=== PATIENT | female | born 1965 | race Caucasian/White ===

== ENCOUNTER → 2017-03-13 | Outpatient (CLI) | payer BC ==
[2017-03-13 14:04] LABS: BASO % 0.6 % (0.0-1.0); EOS # 0.1 10^3/uL (0.0-0.50); EOS % 1.3 % (0.0-3.0); HEMOGLOBIN 15.1 g/dl (12.0-16.0); IMMATURE GRANULOCYTE % 0.2 % (0-0); LYMPH # 1.9 10^3/uL (1.5-4.5); MEAN CORPUSCULAR HEMOGLOBIN 30.8 pg (27.0-33.0); MEAN CORPUSCULAR HGB CONC 32.8 g/dl (32.0-36.5); MEAN CORPUSCULAR VOLUME 93.9 fl (80.0-96.0); MONO # 0.5 10^3/uL (0.0-0.8); MONO % 9.3 % (0.0-5.0); NEUTROPHILS # 2.7 10^3/uL (1.8-7.7); NEUTROPHILS % 51.6 % (36.0-66.0); PLATELET COUNT, AUTOMATED 279 10^3/uL (150-450); RED CELL DISTRIBUTION WIDTH 12.1 % (11.5-14.5); WHITE BLOOD COUNT 5.3 10^3/uL (4.0-10.0)
[2017-03-13 14:40] LABS: ALBUMIN 3.8 GM/DL (3.2-5.2); ALBUMIN/GLOBULIN RATIO 1.09 (1.00-1.93); ALKALINE PHOSPHATASE 66 U/L (45-117); ALT/SGPT 37 U/L (12-78); ANION GAP 9 MEQ/L (8-16); AST/SGOT 28 U/L (7-37); BILIRUBIN,TOTAL 0.7 MG/DL (0.2-1.0); BLOOD UREA NITROGEN 19 MG/DL (7-18); CALCIUM LEVEL 9.2 MG/DL (8.5-10.1); CARBON DIOXIDE LEVEL 25 MEQ/L (21-32); CHLORIDE LEVEL 104 MEQ/L (98-107); CHOLESTEROL LEVEL 272 MG/DL (<200); CHOLESTEROL RISK RATIO 2.344 (<5); CREATININE FOR GFR 0.69 MG/DL (0.55-1.02); GLOMERULAR FILTRATION RATE > 60.0 (>51); GLUCOSE, FASTING 93 MG/DL (70-105); HDL CHOLESTEROL 116 MG/DL (>40); LDL CHOLESTEROL 131.2 MG/DL (<100); NON-HDL-C 156 MG/DL; SODIUM LEVEL 138 MEQ/L (136-145); T UPTAKE 27 % (30-39); TOTAL PROTEIN 7.3 GM/DL (6.4-8.2); TRIGLYCERIDES LEVEL 124 MG/DL (<150)
[2017-03-13 14:42] LABS: VITAMIN B12 LEVEL 596 PG/ML (247-911)
[2017-03-13 14:44] LABS: FREE T4 0.98 NG/DL (0.76-1.46)
[2017-03-13 14:44] LABS: TOTAL 25(OH) VITAMIN D 32.4 NG/ML (30.0-100.0)
[2017-03-13 15:31] LABS: ESTIMATED AVERAGE GLUCOSE 103 MG/DL (60-110); HEMOGLOBIN A1c 5.2 %
[2017-03-18 14:14] LABS: FREE T4 BY DIALYSIS DIRECT 0.98 ng/dL (.)
== END ==
LOC: M SMT 08:49
DX: G71.11 Myotonic muscular dystrophy (principal); R53.83 Other fatigue
CPT/HCPCS: 84443

== ENCOUNTER 2017-04-02 06:44 | Day surgery (SDC) | payer BC ==
[~2017-04-02 06:44] MED LIST: ACETAMINOPHEN 325 MG TAB PO
[2017-04-02] MEDS ORDERED: CYCLOPENTOLATE 2% OPHTH SOLN 2ML BTL As Ordered (06:56)
[2017-04-02] MEDS ORDERED: PHENYLEPHRINE 2.5% OPHTH SOL 2ML As Ordered (06:56)
[2017-04-02] MEDS ORDERED: OFLOXACIN 0.3 % (OCUFLOX) OPTH SOL 5ML As Ordered (06:56)
[2017-04-02] MEDS ORDERED: TROPICAMIDE 1% OPHTH SOLN 2ML As Ordered (06:57)
[2017-04-02] MEDS ORDERED: fentaNYL 100 MCG/2 ML INJECTION (J3010) As Ordered (06:59)
[2017-04-02] MEDS ORDERED: MIDAZOLAM INJ 2 MG/2 ML VIAL (J2250) As Ordered (06:59)
[2017-04-02] MEDS ORDERED: SLF 3 ML SYR IV ×2 (07:00→14:00)
[2017-04-02] MEDS ORDERED: PHENYLEPHRINE HCL 10 % OPHTH. SOL 5ML OD (07:00)
[2017-04-02] MEDS ORDERED: PROPARACAINE 0.5% OPHTH SOL 15ML OD (07:01)
[2017-04-02] MEDS: LIDOCAINE 3.5 % 1ML OPHTH TOPICAL GEL OU (07:16)
[2017-04-02] MEDS: TROPICAMIDE 1% OPHTH SOLN 2ML OD (07:16)
[2017-04-02] MEDS: OFLOXACIN 0.3 % (OCUFLOX) OPTH SOL 5ML XX (07:16)
[2017-04-02] MEDS: PHENYLEPHRINE 2.5% OPHTH SOL 2ML OD (07:16)
[2017-04-02] MEDS: CYCLOPENTOLATE 2% OPHTH SOLN 2ML BTL OD (07:16)
[2017-04-02] MEDS: LIDOCAINE 1% SDV 5 ML VIAL As Ordered (08:22)
[2017-04-02] MEDS: POVIDONE-IODINE 5% OPHTH PREP SOL 30ML As Ordered (08:22)
[2017-04-02] MEDS: HEALON DUET (HEALON 10MG/ML 0.55ML & HEALON ENDOCOAT 30MG/ML 0.85ML) As Ordered (08:22)
[2017-04-02] MEDS: MOXIFLOXACIN IN BSS 0.25MG/0.25ML INTRACAMERAL INJ (OR EYE ONLY)(J2280) As Ordered (08:22)
[2017-04-02] MEDS: TRIAMCINOLONE PRES FR 40 MG/ML 1ML(TRIESENCE)(OR EYE ONLY)(J3300 PER 1MG) As Ordered (08:23)
[2017-04-02] MEDS: BSS with VANC/TOB/EPI for EYE CASES IR (08:23)
[2017-04-02] MEDS ORDERED: AcetaZOLAMIDE 500 MG ER CAP As Ordered (08:41)
[2017-04-02] MEDS: AcetaZOLAMIDE 500 MG ER CAP PO (08:46)
[2017-04-02] MEDS ORDERED: KETOROLAC 0.5% OPHTH SOLN OD (09:00)
[2017-04-02] MEDS ORDERED: TRIMETHOBENZAMIDE 300 MG CAP PO (09:00)
== END 2017-04-02 09:15 | disposition home or self-care (01) ==
LOC: M SDC 06:44
DX: H26.9 Unspecified cataract (principal); G71.11 Myotonic muscular dystrophy; R06.83 Snoring; Z91.040 Latex allergy status
CPT/HCPCS: 66984

== ENCOUNTER → 2017-04-04 | Outpatient (CLI) | payer BC | LOC: M RAD 17:55 | DX: D25.9 Leiomyoma of uterus, unspecified (principal); N85.4 Malposition of uterus; N83.202 Unspecified ovarian cyst, left side; Z78.0 Asymptomatic menopausal state ==

== ENCOUNTER → 2017-04-04 | Outpatient (CLI) | payer BC | LOC: M EKG 17:27 | DX: G71.11 Myotonic muscular dystrophy (principal) | CPT/HCPCS: 93005 ==

== ENCOUNTER → 2017-04-11 | Outpatient (CLI) | payer BC ==
[2017-04-11 10:33] LABS: LUTEINIZING HORMONE 7.9 mIU/mL
[2017-04-11 10:43] LABS: FOLLICLE STIMULATING HORMONE 23.6 mIU/mL
== END ==
LOC: M SMT 08:06
DX: N92.6 Irregular menstruation, unspecified (principal)
CPT/HCPCS: 83001

== ENCOUNTER → 2017-12-03 | Outpatient (CLI) | payer BC | LOC: M SLEEP 19:45 | DX: R40.0 Somnolence (principal); R06.83 Snoring | CPT/HCPCS: 95810 ==

== ENCOUNTER → 2018-03-10 | Outpatient (REF) | payer BC ==
[~2018-03-10] MED LIST changes: -ACETAMINOPHEN 325 MG TAB PO; +BCP PO; +CLON0.5T8 PO
== END ==
LOC: M LAB REF 15:43
PROVIDERS: ATTEND Plastic Surgery Surgery of the Hand
DX: D48.1 Neoplasm of uncertain behavior of connective and other soft tissue (principal)

== ENCOUNTER → 2018-05-19 | Outpatient (REF) | payer BC | LOC: M LAB REF 12:30 | PROVIDERS: ATTEND Dermatology | DX: L82.1 Other seborrheic keratosis (principal); D23.62 Other benign neoplasm of skin of left upper limb, including shoulder; D23.5 Other benign neoplasm of skin of trunk ==

== ENCOUNTER → 2018-09-17 | Outpatient (REF) | payer BC | LOC: M SMT 17:23 | PROVIDERS: ATTEND Nurse Practitioner Family | DX: J02.9 Acute pharyngitis, unspecified (principal) ==

== ENCOUNTER → 2018-12-24 | Outpatient (CLI) | payer BC ==
[2018-12-24 11:11] LABS: HEMATOCRIT 45.9 % (36.0-47.0); HEMOGLOBIN 14.6 g/dl (12.0-15.5); MEAN CORPUSCULAR HEMOGLOBIN 31.5 pg (27.0-33.0); MEAN CORPUSCULAR HGB CONC 31.8 g/dl (32.0-36.5); MEAN CORPUSCULAR VOLUME 99.1 fl (80.0-96.0); PLATELET COUNT, AUTOMATED 266 10^3/uL (150-450); RED BLOOD COUNT 4.63 10^6/uL (4.00-5.40)
[2018-12-24 11:28] LABS: CHOLESTEROL LEVEL 258 MG/DL (<200); ESTRADIOL < 19.0 PG/ML; FOLLICLE STIMULATING HORMONE 0.4 mIU/mL; FREE THYROXINE INDEX 3.6 % (1.3-4.8); GLUCOSE, FASTING 83 MG/DL (70-100); HDL CHOLESTEROL 124 MG/DL (>40); LDL CHOLESTEROL 101 MG/DL (<100); LUTEINIZING HORMONE < 0.1 mIU/mL; NON-HDL-C 134 MG/DL; PTH INTACT 51.9 PG/ML (18.5-88.0); T UPTAKE 28 % (30-39); TRIGLYCERIDES LEVEL 165 MG/DL (<150); VITAMIN B12 LEVEL 585 PG/ML (247-911)
[2018-12-24 11:38] LABS: HEMOGLOBIN A1c 4.9 %
[2018-12-26 08:12] LABS: VITAMIN D 1,25 DIHYDROXY 58.3 pg/mL (19.9-79.3)
== END ==
LOC: M SMT 08:28
PROVIDERS: ATTEND Nurse Practitioner Women's Health
DX: G71.11 Myotonic muscular dystrophy (principal)

== ENCOUNTER → 2019-12-16 | Outpatient (CLI) | payer BC ==
[~2019-12-16] MED LIST changes: +CLON0.5T2 PO; -CLON0.5T8 PO
[2019-12-16 11:54] LABS: BASO % 0.6 % (0.0-1.0); EOS % 0.6 % (0.0-3.0); HEMATOCRIT 45.7 % (36.0-47.0); HEMOGLOBIN 14.8 g/dl (12.0-15.5); LYMPH # 1.9 10^3/uL (1.5-5.0); LYMPH % 37.1 % (24.0-44.0); MEAN CORPUSCULAR HEMOGLOBIN 31.8 pg (27.0-33.0); MEAN CORPUSCULAR HGB CONC 32.4 g/dl (32.0-36.5); MEAN CORPUSCULAR VOLUME 98.1 fl (80.0-96.0); MONO # 0.6 10^3/uL (0.0-0.8); MONO % 11.4 % (0.0-5.0); NEUTROPHILS # 2.6 10^3/uL (1.5-8.5); NEUTROPHILS % 50.1 % (36.0-66.0); PLATELET COUNT, AUTOMATED 252 10^3/uL (150-450); RED BLOOD COUNT 4.66 10^6/uL (4.00-5.40); WHITE BLOOD COUNT 5.2 10^3/uL (4.0-10.0)
[2019-12-16 12:15] LABS: CHOLESTEROL RISK RATIO 3.109 (<5); THYROID STIMULATING HORMONE 2.76 uIU/ML (0.358-3.740)
[2019-12-16 12:56] LABS: HEMOGLOBIN A1c 4.9 %
--- NOTE | 2019-12-17 08:17 | ECGEPIP ---
[facility] Test Date: 2019-12-16 Pat Name: PATRICIA WELLS Department: Room: - Gender: Female Electrical Intern: IQRA : 1965 Requested By: Jaleesa Damon Order Number: [id number] Reading MD: Arnold Schmidt Measurements Intervals [place] Rate: 65 P: -2 MA: 133 QRS: 52 QRSD: 90 T: -12 QT: 413 QTc: 429 Interpretive Statements SINUS RHYTHM NONSPECIFIC T-WAVE ABNORMALITY Inferoapical repolarization abnormalities more prominent than 04/04/17 Clinical correlation advised Electronically Signed on 12-17-2019 8:17:00 EDT by Arnold Schmidt
[2019-12-18 16:07] LABS: CERULOPLASMIN 27.3 mg/dL (19.0-39.0)
== END ==
LOC: M LAB 10:52
PROVIDERS: ATTEND Nurse Practitioner
DX: G71.11 Myotonic muscular dystrophy (principal); R94.31 Abnormal electrocardiogram [ECG] [EKG]

== ENCOUNTER → 2019-12-29 | Outpatient (CLI) | payer BC ==
[2019-12-29 11:08] LABS: BLOOD UREA NITROGEN 13 MG/DL (7-18); CALCIUM LEVEL 9.3 MG/DL (8.5-10.1); CARBON DIOXIDE LEVEL 26 MEQ/L (21-32); CHLORIDE LEVEL 108 MEQ/L (98-107); CHOLESTEROL LEVEL 256 MG/DL (<200); CHOLESTEROL RISK RATIO 2.752 (<5); CREATININE FOR GFR 0.66 MG/DL (0.55-1.30); GLOMERULAR FILTRATION RATE > 60.0 (>51); GLUCOSE, FASTING 80 MG/DL (70-100); HDL CHOLESTEROL 93 MG/DL (>40); LDL CHOLESTEROL 140 MG/DL (<100); NON-HDL-C 163 MG/DL; POTASSIUM SERUM 4.3 MEQ/L (3.5-5.1); SODIUM LEVEL 140 MEQ/L (136-145); TOTAL 25(OH) VITAMIN D 58.5 NG/ML (30.0-100.0); TRIGLYCERIDES LEVEL 113 MG/DL (<150)
== END ==
LOC: M LAB 09:18
PROVIDERS: ATTEND Specialist
DX: G71.11 Myotonic muscular dystrophy (principal)

== ENCOUNTER → 2020-02-02 | Outpatient (CLI) | payer BC ==
--- NOTE | 2020-02-07 08:35 | ECHO ---
DATE OF PROCEDURE: 02/02/2020 Age: 54 Gender: Female Height: 64 inches Weight: 120 pounds REFERRING PHYSICIAN: Petr Cole MD INDICATION: Hypercholesterolemia, cardiovascular disorder, unspecified. MEASUREMENTS: 2D Measurements: Aortic root 2.8 cm Left atrium 3.3 cm Intraventricular septum 1.11 cm Posterior wall 0.91 cm Left ventricle diastole 3.9 cm Inferior vena cava 2.15 cm (more than 50% respiratory variation) Doppler Measurements: No aortic stenosis No aortic regurgitation Aortic valve velocity 108 cm/s LVOT velocity 97.0 cm/s LVOT VTI 21.8 cm Trace mitral regurgitation Mitral E velocity 87.9 cm/s Mitral A velocity 49.4 cm/s Mitral deceleration time 134 msec Trace tricuspid regurgitation No pulmonic regurgitation Pulmonary artery acceleration time 176 msec MITRAL ANNULAR TISSUE DOPPLER E prime septal 9.1 cm/s, E prime lateral 12.5 cm/s DESCRIPTION: Rhythm was sinus. Image quality was fair. No pericardial effusion. This was a 2D, M-mode, color flow Doppler, and pulsed wave Doppler examination including mitral annular tissue Doppler. CONCLUSIONS: 1. Normal echocardiogram Doppler. 2. Normal left ventricle internal dimensions and wall thickness. Normal regional left ventricular (LV) wall motion and wall thickening. Normal left ventricular (LV) systolic function. Left ventricular ejection fraction (LVEF) of 65% by visual estimate. Normal left ventricular (LV) diastolic function. MTDD
== END ==
LOC: M CARPUL 09:32
DX: E78.00 Pure hypercholesterolemia, unspecified (principal)

== ENCOUNTER → 2020-02-05 | Outpatient (CLI) | payer SELFPAY | LOC: M LABSMTC 08:56 | PROVIDERS: ATTEND Pediatrics | DX: Z20.828 Contact with and (suspected) exposure to other viral communicable diseases (principal) ==

== ENCOUNTER → 2020-03-27 | Outpatient (CLI) | payer BC ==
--- NOTE | 2020-04-11 17:24 | REPMRS ---
Patient History The patient states she has not had a clinical breast exam in over a year. Patient had first child at age 37. Family history of breast cancer at age 50 or over in maternal aunt, breast cancer at age 80 in maternal grandmother. Taking estrogen for 2 months. Taking progesterone for 2 months. Taking unspecified hormones for 2 months. [facility] Screen Mammo: March 27, 2020 - Exam #: [id number] Bilateral CC and MLO view(s) were taken. Technologist: Gloria Garcia, Technologist Prior study comparison: February 25, 2019, bilateral mammogram, performed at [facility]. February 23, 2018, bilateral mammogram, performed at [facility]. FINDINGS: The breast tissue is extremely dense which could obscure a lesion on mammography. The [place] volumetric breast density category is: D. There is an extremely dense symmetrical pattern of residual fibroglandular tissue. There has been no change in the appearance of the mammogram from the previous studies. There is no interval development of dominant mass, archetectural distortion, or grouped microcalcifications suggestive of malignancy. 3-D tomosynthesis shows no additional findings. Assessment: BI-RADS/ACR category 1 mammogram. Negative Mammogram. Recommendation Breast MRI of both breasts in 6 months. Routine screening mammogram of both breasts in 1 year (for women over age 40). This patient's [facility] Lifetime Breast Cancer RIsk is estimated at 20.2 %. Annual screening Breast MRI scanniing is recommended for patient's whose lifetime risk assessment is over 20%. This mammogram was interpreted with the aid of an FDA-approved computer-aided dectection system. Electronically Signed By: Terrence Chamberlain MD 04/11/20 [id number]
== END ==
LOC: M WHC 13:34
PROVIDERS: ATTEND Obstetrics & Gynecology
DX: Z12.31 Encounter for screening mammogram for malignant neoplasm of breast (principal); Z80.3 Family history of malignant neoplasm of breast

== ENCOUNTER → 2020-04-03 | Outpatient (REF) | payer BC | LOC: M SFHCPLAZ 17:08 | PROVIDERS: ATTEND Physician Assistant | DX: Z91.89 Other specified personal risk factors, not elsewhere classified (principal) ==

== ENCOUNTER → 2020-09-07 | Outpatient (CLI) | payer BC ==
--- NOTE | 2020-09-08 00:58 | REP ---
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 COMPARISON: None. TECHNIQUE: AP, lateral, bilateral oblique views of the right hand. FINDINGS: Osseous structures, joint spaces, and surrounding soft tissues are essentially normal/age-appropriate. No overt osteoarthritic degenerative changes are appreciated. No evidence for acute or healed injury. No subcutaneous emphysema or foreign body. IMPRESSION: Normal age-appropriate right hand radiographs. <Electronically signed by Aguilar Hunt > 09/08/20 0054
== END ==
LOC: M SOG 15:14
PROVIDERS: ATTEND Orthopaedic Surgery Sports Medicine
DX: M18.11 Unilateral primary osteoarthritis of first carpometacarpal joint, right hand (principal)

== ENCOUNTER → 2020-12-08 | Outpatient (REF) | LOC: M EMP 12:49 | PROVIDERS: ATTEND Family Medicine | DX: Z20.822 Contact with and (suspected) exposure to COVID-19 (principal) ==

== ENCOUNTER → 2021-01-27 | Outpatient (CLI) | payer BC ==
[2021-01-27 11:16] LABS: CHOLESTEROL RISK RATIO 2.522 (<5); THYROID STIMULATING HORMONE 1.82 uIU/ML (0.358-3.740)
== END ==
LOC: M LAB 09:38
PROVIDERS: ATTEND Physician Assistant
DX: G71.11 Myotonic muscular dystrophy (principal)

== ENCOUNTER → 2021-09-12 | Outpatient (CLI) | payer BC | LOC: M PAIN 09:00 | PROVIDERS: ATTEND Anesthesiology | DX: M50.10 Cervical disc disorder with radiculopathy, unspecified cervical region (principal); Z88.6 Allergy status to analgesic agent; Z79.899 Other long term (current) drug therapy ==

== ENCOUNTER → 2021-09-23 | Outpatient (CLI) | payer BC | LOC: M LABSMTC 11:19 | PROVIDERS: ATTEND Anesthesiology | DX: Z01.812 Encounter for preprocedural laboratory examination (principal); Z20.822 Contact with and (suspected) exposure to COVID-19 ==

== ENCOUNTER → 2021-09-27 | Outpatient (CLI) | payer BC ==
[~2021-09-27] MED LIST changes: +ISOVUE-M 300 61% 15ML VIAL As Ordered ONE; +LIDOCAINE 1% SDV 30ML VIAL As Ordered ONE; +methylPREDNISolone SUSP 40MG/ML 1ML VIAL (DEPO MEDROL) As Ordered ONE
== END ==
LOC: M PAIN 10:00
PROVIDERS: ATTEND Anesthesiology
DX: M50.10 Cervical disc disorder with radiculopathy, unspecified cervical region (principal); G89.29 Other chronic pain; Z88.6 Allergy status to analgesic agent; Z79.899 Other long term (current) drug therapy
CPT/HCPCS: 62321; J1030; Q9967

== ENCOUNTER → 2022-04-29 | Outpatient (CLI) | payer BC ==
[~2022-04-29] MED LIST changes: -ISOVUE-M 300 61% 15ML VIAL As Ordered ONE; -LIDOCAINE 1% SDV 30ML VIAL As Ordered ONE; -methylPREDNISolone SUSP 40MG/ML 1ML VIAL (DEPO MEDROL) As Ordered ONE
== END ==
LOC: M RAD 14:39
DX: M54.12 Radiculopathy, cervical region (principal)

== ENCOUNTER → 2022-06-19 | Outpatient (CLI) | payer BC | LOC: M WHC 16:53 | PROVIDERS: ATTEND Obstetrics & Gynecology | DX: Z12.31 Encounter for screening mammogram for malignant neoplasm of breast (principal); R92.8 Other abnormal and inconclusive findings on diagnostic imaging of breast ==

== ENCOUNTER → 2022-08-01 | Outpatient (CLI) | payer BC | LOC: M PAIN 09:30 | PROVIDERS: ATTEND Anesthesiology | DX: M79.18 Myalgia, other site (principal); Z88.6 Allergy status to analgesic agent; Z79.899 Other long term (current) drug therapy ==

== ENCOUNTER → 2022-08-23 | Outpatient (CLI) | payer BC ==
[~2022-08-23] MED LIST changes: +BOTOX THERAPEUTIC 100 UNIT VIAL IM ONE
== END ==
LOC: M PAIN 09:15
PROVIDERS: ATTEND Anesthesiology
DX: M79.18 Myalgia, other site (principal); G89.29 Other chronic pain; Z88.6 Allergy status to analgesic agent; Z79.899 Other long term (current) drug therapy
CPT/HCPCS: 20552; J0585